=== PATIENT | male | born 1955 | race Caucasian/White ===

== ENCOUNTER 2021-11-22 16:09 | Inpatient (IN) | payer OTHER ==
[~2021-11-22] VITALS: Ht 172.7 cm; Wt 93.4 kg
[~2021-11-22 16:09] MED LIST: ASPI-1169 PO; CEFEPIME 2 GM in IV D5W 100 ML IV ONE; CLOP75TA15 PO
--- NOTE | 2021-11-22 16:20 | NUR ---
TO ER BED 8, CHANDUA RA39 "Chills/NOT feeling well. Palpitation, Nausea/NO appetite". "I thought i'm hypoglycemic". Blood sugar 209, aaox3, breathing even and non labored, denies pain and sob, connected to monitor, awaiting md orders
[2021-11-22] MEDS ORDERED: ONDANSETRON HCL/PF 4 MG/2 ML VIAL ONE ×2 (16:25→20:58)
--- NOTE | 2021-11-22 16:25 | NUR ---
COVID ANTIGEN AND PCR SWABS DONE AND SENT TO LAB
[2021-11-22] MEDS ORDERED: ASPIRIN 325 MG TABLET PO ONE (16:30)
[2021-11-22] MEDS ORDERED: ONDANSETRON HCL/PF - ER 4 MG/2 ML VIAL IV ONE (16:30)
[2021-11-22] MEDS ORDERED: IV NS 0.9% 1,000 ML IV ONE ×2 (16:30→17:30)
--- NOTE | 2021-11-22 16:38 | NUR ---
URINE COLLECTED AND SENT TO LAB
[2021-11-22 16:39] LABS: BASOPHILS % (AUTO) 0.3 % (0.0-2.0); EOSINOPHILS % (AUTO) 0.1 % (0.0-6.0); HEMATOCRIT 52 % (39-51); HEMOGLOBIN 17.1 g/dL (13.5-17.5); LYMPHOCYTES # (AUTO) 0.7 K/uL (0.8-4.8); LYMPHOCYTES % (AUTO) 6.2 % (20.0-44.0); MEAN CORPUSCULAR HGB CONC 33 g/dl (31.0-36.0); MEAN CORPUSCULAR VOLUME 86 fL (80-96); MONOCYTES # (AUTO) 0.4 K/uL (0.1-1.30); MONOCYTES % (AUTO) 3.4 % (2.0-12.0); NEUTROPHILS # (AUTO) 9.5 K/uL (1.8-8.9); PLATELET COUNT (AUTO) 146 K/uL (150-450); RED BLOOD CELL COUNT(AUTO) 6.08 MIL/uL (4.5-6.0); WHITE BLOOD COUNT (AUTO) 10.6 K/uL (4.3-11.0)
[2021-11-22] MEDS ORDERED: ASPIRIN EC 325 MG TABLET.DR PO ONE (16:39)
[2021-11-22] MEDS ORDERED: ASPIRIN 325 MG TABLET ONE (16:40)
[2021-11-22] MEDS ORDERED: CARV12.52 PO (16:44)
[2021-11-22] MEDS ORDERED: ISOS30TA86 PO (16:44)
[2021-11-22] MEDS ORDERED: LISI-768 PO (16:44)
[2021-11-22] MEDS ORDERED: TEST200V3 IM (16:44)
[2021-11-22 16:52] LABS: CALCIUM, SERUM 9.9 mg/dL (8.5-10.1); CREATININE 1.2 mg/dL (0.6-1.3); POTASSIUM 3.5 mmol/L (3.5-5.1)
[2021-11-22 17:05] LABS: THYROID STIMULATING HORMONE 1.822 uIU/mL (0.358-3.74)
--- NOTE | 2021-11-22 17:16 | NUR ---
LACTIC ACID 8.7 DR. SIMON MADE AWARE.
[2021-11-22 17:28] LABS: BILIRUBIN,URINE NEGATIVE (NEGATIVE); COLOR,URINE YELLOW (YELLOW); LEUKOCYTE ESTERASE ,URINE NEGATIVE (NEGATIVE); NITRITE, URINE NEGATIVE (NEGATIVE); PH,URINE 5.5 (5.0-8.0); PROTEIN,URINE >=300 mg/dl (NEGATIVE); UGLUCOSE NEGATIVE (NEGATIVE); UROBILINOGEN,URINE 0.2 EU/dL (0.2)
[2021-11-22] MEDS ORDERED: IOHEXOL-350 100 ML VIAL IV ONE (17:31)
[2021-11-22] MEDS ORDERED: CT SWABBABLE VALVE TRANS SET 1 EA INFUS.SET MC ONE (17:31)
[2021-11-22] MEDS ORDERED: IV NS 0.9% 250 ML IV ONE (17:31)
--- NOTE | 2021-11-22 17:53 | NUR ---
TAKEN TO CT
[2021-11-22 18:08] LABS: BACTERIA,URINE None seen /HPF (None Seen); MUCUS,URINE Many /LPF (None Seen); RBC,URINE 21-50 /HPF (0-2); SQUAMOUS EPITHELIAL CELL,UR 0-2 /HPF (None Seen); WBC,URINE 0-2 /HPF (0-3)
[2021-11-22 18:16] LABS: ALANINE AMINOTRANSFERASE 82 U/L (12-78); ALKALINE PHOSPHATASE 51 U/L (46-116); ASPARTATE AMINOTRANSFERASE 88 U/L (15-37); BILIRUBIN,DIRECT 0.2 mg/dL (0.0-0.2); BILIRUBIN,TOTAL 0.6 mg/dL (0.2-1.0); LIPASE 246 U/L (73-393); MAGNESIUM 1.9 mg/dL (1.8-2.4); TOTAL PROTEIN, SERUM 8.7 g/dL (6.4-8.2)
--- NOTE | 2021-11-22 19:14 | NUR ---
CALLED KEHINDE FOR READ.
--- NOTE | 2021-11-22 19:39 | NUR ---
PT RECEIVED IN BED. NO DISTRESS. NOTED SHAKING.
[2021-11-22] MEDS ORDERED: VANCOMYCIN 1 GM in IV D5W 250 ML IV ONE (20:00)
[2021-11-22] MEDS ORDERED: CEFEPIME 1 GM in IV D5W 50 ML IV ONE (20:00)
[2021-11-22] MEDS ORDERED: CEFEPIME 1 GM VIAL ONE (20:14)
[2021-11-22] MEDS ORDERED: VANCOMYCIN 1 GM VIAL ONE (20:15)
[2021-11-22] MEDS ORDERED: CARVEDILOL 6.25 MG TABLET PO STA (20:28)
[2021-11-22] MEDS ORDERED: LISINOPRIL (5MG) 5 MG TABLET PO STA (20:28)
[2021-11-22] MEDS ORDERED: ENOXAPARIN SODIUM 100 MG/ML DISP.SYRIN SQ ONE ×2 (20:30→20:58)
--- NOTE | 2021-11-22 20:45 | NUR ---
[facility]ORAT[facility] SPECIALIST CALLED. WILL ACLL BACK FOR MD TO
--- NOTE | 2021-11-22 20:49 | NUR ---
SPOKE WITH [facility], FACULTY [employer] AND GAVE VERBAL AUTHORIZATION TO STAY.
--- NOTE | 2021-11-22 20:54 | NUR ---
EPIC PANEL PAGED
[2021-11-22] MEDS ORDERED: LISINOPRIL (20MG) 20 MG TABLET ONE (20:58)
[2021-11-22] MEDS ORDERED: CARVEDILOL 12.5 MG TABLET ONE (20:58)
[2021-11-22] MEDS ORDERED: ONDANSETRON HCL/PF 4 MG/2 ML VIAL IV ONE (21:00)
[2021-11-22] MEDS: ENOXAPARIN SODIUM 40 MG/0.4 ML DISP.SYRIN SQ SCH (23:30)
[2021-11-22] MEDS ORDERED: ZOLPIDEM TARTRATE 5 MG TABLET PO PRN (23:30)
[2021-11-22] MEDS ORDERED: Z GUARD REMEDY 4 OZ OINT TP PRN (23:30)
[2021-11-22] MEDS ORDERED: MAG HYDROX/AL HYDROX/SIMETH 30 ML UDC PO PRN (23:30)
[2021-11-22] MEDS ORDERED: MAGNESIUM HYDROXIDE 30 ML UDC PO PRN (23:30)
[2021-11-22] MEDS ORDERED: ACETAMINOPHEN 325 MG TABLET PO PRN (23:30)
--- NOTE | 2021-11-23 01:21 | NUR ---
REPORT GIVEN TO ERIN PALACIOS FOR ANDREA
--- NOTE | 2021-11-23 02:07 | NUR ---
MRSA SWAB COLLECTED AND SENT TO LAB. PATIENT'S BELONGINGS LIST DONE.
--- NOTE | 2021-11-23 02:25 | NUR ---
PT TRANSPORTED TO UNIT ON [facility] WITH EMT AND RN AT BEDSIDE W/ ACLS PROTOCOL. NAD NOTED DURING TRANSPORT. PT AMBULATED FROM RNEY TO BED WITH MIN ASSIST.
--- NOTE | 2021-11-23 02:30 | NUR ---
RN NOTE RECEIVED PT FROM ER VIA [facility] TO RM.110 ACCOMPANIED BY STAFF/RN. PT AWAKE, A/OX4. PT ABLE TO AMBULATE FROM GURNEY TO BED, PT FEELING "SHAKY", STANDBY ASSIST PROVIDED. RESPIRATIONS EVEN/UNLABORED, ON O2 @2LPM VIA NC. O2 SAT 97%. CONNECTED TO TELE MONITOR. IV SITE: [facility] #20G INTACT/PATENT/FLUSHES WELL. PT DENIES ANY PAIN AND DENIES NAUSEA AT THIS TIME. PT IN NO ACUTE DISTRESS. SAFETY MEASURES IN PLACE, BED IN LOWEST LOCKED POSITION, S/R UPX2, CALL LIGHT WITHIN REACH. WILL CONT TO MONITOR. Addendum: 11/23/21 at 0346 by JUAN JOSÉ ARNOLD RN LOVENOX ALREADY GIVEN IN THE E.R., PER WOODEN TANK ERECTOR REPORT
[2021-11-23] MEDS: IV 1/2NS 1000 ML 1,000 ML IV PRN (03:55)
[2021-11-23] MEDS: ONDANSETRON HCL/PF 4 MG/2 ML VIAL IVP PRN ×2 (04:51→11:47)
[2021-11-23 06:53] LABS: ALBUMIN 3.3 g/dL (3.4-5.0); BILIRUBIN,DIRECT 0.3 mg/dL (0.0-0.2); BILIRUBIN,TOTAL 1.2 mg/dL (0.2-1.0); CALCIUM, SERUM 8.4 mg/dL (8.5-10.1); CREATININE 0.8 mg/dL (0.6-1.3); MAGNESIUM 1.8 mg/dL (1.8-2.4); PHOSPHORUS 2.6 mg/dL (2.5-4.9); POTASSIUM 3.4 mmol/L (3.5-5.1); TOTAL PROTEIN, SERUM 7.2 g/dL (6.4-8.2)
[2021-11-23 07:19] LABS: BASOPHILS % (AUTO) 0.3 % (0.0-2.0); EOSINOPHILS % (AUTO) 0.8 % (0.0-6.0); HEMATOCRIT 45 % (39-51); HEMOGLOBIN 15.2 g/dL (13.5-17.5); LYMPHOCYTES # (AUTO) 0.6 K/uL (0.8-4.8); LYMPHOCYTES % (AUTO) 12.1 % (20.0-44.0); MEAN CORPUSCULAR HGB CONC 34 g/dl (31.0-36.0); MEAN CORPUSCULAR VOLUME 86 fL (80-96); MONOCYTES # (AUTO) 0.6 K/uL (0.1-1.30); MONOCYTES % (AUTO) 10.9 % (2.0-12.0); NEUTROPHILS # (AUTO) 3.9 K/uL (1.8-8.9); NEUTROPHILS % (AUTO) 75.9 % (43.0-81.0); PLATELET COUNT (AUTO) 99 K/uL (150-450); RED BLOOD CELL COUNT(AUTO) 5.27 MIL/uL (4.5-6.0); THYROID STIMULATING HORMONE 1.155 uIU/mL (0.358-3.74); WHITE BLOOD COUNT (AUTO) 5.1 K/uL (4.3-11.0)
[2021-11-23] MEDS: ASPIRIN EC 81 MG TABLET.DR PO SCH (08:09)
[2021-11-23] MEDS: PANTOPRAZOLE 40 MG TABLET.DR PO SCH (08:09)
[2021-11-23] MEDS: ISOSORBIDE MONONITRATE (30MG) 30 MG TAB.SR.24H PO SCH (08:10)
[2021-11-23] MEDS: CARVEDILOL 12.5 MG TABLET PO SCH ×2 (08:10→16:34)
[2021-11-23] MEDS: LISINOPRIL (5MG) 5 MG TABLET PO SCH (08:11)
[2021-11-23] MEDS: VANCOMYCIN 1 GM in IV D5W 250ml IV SCH ×2 (08:47→20:54)
[2021-11-23] MEDS ORDERED: ASPIRIN 81 MG TAB.CHEW PO SCH (09:00)
[2021-11-23] MEDS ORDERED: POTASSIUM CHLORIDE 20 MEQ TAB.PRT.SR PO SCH (10:00)
--- NOTE | 2021-11-23 10:00 | NUR ---
tele weaving instructor: md visit seen and examined by dr. martin at this time with no new order.
[2021-11-23] MEDS: CEFEPIME 2 GM in IV D5W 100 ML IV SCH ×2 (10:11→22:00)
--- NOTE | 2021-11-23 11:45 | NUR ---
tele boom boss: cardio consult seen and examined by dr. ross at this time.
--- NOTE | 2021-11-23 12:30 | NUR ---
tele gift wrapper: notes having lunch. no distress noted.
--- NOTE | 2021-11-23 15:00 | NUR ---
tele automobile locator: notes resting comfortable in bed. no distress noted.
--- NOTE | 2021-11-23 19:10 | NUR ---
tele occupational psychologist: notes bedside report given to ivett (dominique) for continuity of care.
--- NOTE | 2021-11-23 19:30 | NUR ---
1929 REPORT RECEIVED FROM NURSE BURNS FOR TRANSFER OF CARE WITH QUESTIONS ANSWERED.
--- NOTE | 2021-11-23 20:00 | NUR ---
2000 RECEIVED AWAKE WATCHING TV. NO COMPLAIN OF PAIN PARTICULARLY CHEST PAIN WHEN ASKED. NO COMPLAIN OF SHORTNESS OR BREATH OR DIFFICULTY BREATHING. ASSISTED TO SINK REQUESTED. PATIENT NOTED SHAKY WHEN AMBULATING. SAFETY PRECAUTION OBSERVED. CALL LIGHT PLACED WITHIN REACH AND INSTRUCTED TO CALL FOR ASSISTANCE.
--- NOTE | 2021-11-23 21:15 | NUR ---
2114 DR FOSTER WAS NOTIFIED OF PATIENT'S COMPLAIN OF ABDOMINAL PAIN 60/10 RATE WITH ORDER MADE. ORDER NOTED AND CARRIED OUT.
[2021-11-23] MEDS: ENOXAPARIN SODIUM 40 MG/0.4 ML DISP.SYRIN SQ SCH (21:17)
[2021-11-23] MEDS ORDERED: HYDROCODONE/APAP 5/325MG TABLET PO PRN (21:30)
--- NOTE | 2021-11-23 22:30 | NUR ---
0 NOTED PATIENT'S IV DISLODGED. HE SAID IT GOT PULLED OUT WHEN HE TRIED TO REACH FOR HIS CONTROL. INSERTED NEW IV OF LEFT HAND, ATTEMTPED ONCE WITH GOOD BLOOD RETURN NOTED. IVF CONNECTED TO NEW IV ACCESS.
--- NOTE | 2021-11-24 02:00 | NUR ---
0200 NO ACUTE CHANGES. CONT. TO DENY CHEST PAIN. NO DISTRESS NOTED. NEEDS ANTICIPATED. WILL CONT. MONITOR.
[2021-11-24] MEDS: IV 1/2NS 1000 ML 1,000 ML IV PRN (03:02)
[2021-11-24] MEDS: ONDANSETRON HCL/PF 4 MG/2 ML VIAL IVP PRN (04:41)
--- NOTE | 2021-11-24 04:45 | NUR ---
0445 MEDICATED FOR COMPLAIN OF NAUSEA. NO VOMITING NOTED. PATIENT REMAINS AWAKE IN BED. NO SIGNS OF DISTRESS NOTED. NO C/O PAIN WHEN ASKED. IVF INFUSING TO LEFT HAND, NO SIGNS OF INFILTRATION NOTED. CONT. TO TOLERATE ROOM AIR. ALL NEEDS ATTENDED. CALL LIGHT PLACED WITHIN REACH.
--- NOTE | 2021-11-24 06:30 | NUR ---
0630 NO FURTHER NAUSEA VOMITING NOTED. NO COMPLAIN OF PAIN WHEN ASKED. IVF INFUSING TO LEFT HAND. NO SIGNS OF INFILTRATION NOTED. CALL LIGHT PLACED WITHIN REACH. WILL ENDORSE TO AM NURSER FOR TRANSFER OF CARE.
--- NOTE | 2021-11-24 07:30 | NUR ---
0730 REPORT GIVEN TO ERIN GARCIA FOR TRANSFER OF CARE WITH QUESTIONS ANSWERED.
--- NOTE | 2021-11-24 07:35 | NUR ---
RN OPENING NOTES RECEIVED PATIENT AWAKE, ALERT/ORIENTED X 4. ON ROOM AIR, TOLERATING WELL. BREATHING EVEN AND UNLABORED. NO SOB OR ANY SIGNS OF RESPIRATORY DISTRESS NOTED. IV ACCESS ON LEFT HAND PATENT AND INTACT, INFUSING 1/2 NS AT 75 CC/HR. NO SIGNS OF INFILTRATIONS. ALL APPLICABLE ISOLATIONS PRECAUTIONS IN PLACE. ALL SAFETY MEASURES IN PLACE. BED LOCKED AND IN LOWEST POSITION WITH SIDERAILS UP. CALL LIGHT PLACED WITHIN REACH. WILL CONTINUE TO MONITOR PATIENT ACCORDINGLY.
[2021-11-24] MEDS: PANTOPRAZOLE 40 MG TABLET.DR PO SCH (08:39)
[2021-11-24] MEDS: ISOSORBIDE MONONITRATE (30MG) 30 MG TAB.SR.24H PO SCH (08:40)
[2021-11-24] MEDS: LISINOPRIL (5MG) 5 MG TABLET PO SCH (08:40)
[2021-11-24] MEDS: CARVEDILOL 12.5 MG TABLET PO SCH ×2 (08:40→17:57)
[2021-11-24] MEDS: ASPIRIN EC 81 MG TABLET.DR PO SCH (08:40)
[2021-11-24] MEDS: VANCOMYCIN 1 GM in IV D5W 250ml IV SCH (08:41)
[2021-11-24] MEDS: CEFEPIME 2 GM in IV D5W 100 ML IV SCH ×2 (09:54→22:18)
[2021-11-24] MEDS ORDERED: NITROGLYCERIN 0.4 MG/TAB BOTTLE SL ONE (11:00)
--- NOTE | 2021-11-24 11:45 | NUR ---
RN NOTES PATIENT LEFT UNIT FOR PROCEDURE: CT ANGIOGRAM OF HEART WITH 3D IMAGE. PATIENT IN STABLE CONDITION AT THE TIME.
[2021-11-24] MEDS: METOPROLOL TARTRATE INJ 5 MG/5 ML AMPUL IVP PRN ×2 (12:10→12:15)
--- NOTE | 2021-11-24 13:45 | NUR ---
RN NOTES PATIENT BACK IN UNIT. PATIENT IN STABLE CONDITION. BREATHING EVEN AND UNLABORED. NO SOB OR ANY RESPIRATORY DISTRESS NOTED. ALL NEEDS ATTENDED. KEPT DRY AND CLEAN. ALL SAFETY PRECAUTIONS IN PLACE. BED LOCKED AND IN LOWEST POSITION. CALL LIGHT WITHIN REACH. WILL CONTINUE TO MONITOR.
--- NOTE | 2021-11-24 19:06 | NUR ---
RN CLOSING NOTES PATIENT REMAINS IN STABLE CONDITION THROUGHOUT SHIFT. BREATHING EVEN AND UNLABORED IN ROOM AIR, TOLERATING WELL SAT 96%. IV ACCESS ON LEFT HAND #22 AND RIGHT AC #18, PATENT AND INTACT INFUSING 1/2 NS @ 75 ML/HR, NO SIGNS OF INFILTRATIONS. ALL DUE MEDS GIVEN ORDERED. KEPT PATIENT CLEAN, DRY AND COMFORTABLE. ALL NEEDS ATTENDED. ALL APPLICABLE ISOLATION PRECAUTIONS IN PLACE. ALL SAFETY MEASURES IN PLACE: HOB ELEVATED, BED LOCKED AND IN LOWEST POSITION WITH SIDERAILS UP. CALL LIGHT WITHIN REACH. WILL ENDORSE TO ONCOMING NURSE FOR CONTINUITY OF CARE.
--- NOTE | 2021-11-24 19:10 | NUR ---
1909 REPORT RECEIVED DARIO GARCIA FOR [facility].
[2021-11-24 20:00] VITALS: BP 110/59
--- NOTE | 2021-11-24 20:00 | NUR ---
2000 RECEIVED PATIENT SITTING ON EDGE OF BED. NO COMPLAIN OF PAIN OR ANY DISCOMFORT WHEN ASKED, NO C/O SHORTNESS OF BREATH OF DIFFICULTY BREATHING WHEN ASKED. ON ROOM AIR. IVF INFUSING TO RIGHT AC. NO SIGNS OF INFILTRATION NOTED. IVF STOPPED PER ORDER. ASSISTED PATIENT TO BATHROOM. STILL A LITTLE SHAKY WHEN WALKING. FALL PRECAUTIONS OBSERVED. INDEPENDENT WITH TURNING. CALL LIGHT PLACED WITH REACH AND REMINDED TO CALL FOR ASSISTANCE.
[2021-11-24] MEDS: VANCOMYCIN 1.25 GM in IV D5W 250 ML IV SCH (21:02)
[2021-11-24] MEDS: ENOXAPARIN SODIUM 40 MG/0.4 ML DISP.SYRIN SQ SCH (21:02)
--- NOTE | 2021-11-24 22:45 | NUR ---
1318 ASSISTED TO BATHROOM. STILL SHAKY WHEN WALKING. FALL PRECAUTIONS OBSERVED. CONT. TO TOLERATE ROOM AIR. NO C/O PAIN WHEN ASKED. NO COMPLAIN OF SOB WHEN ASKED. NEEDS ATTENDED. CALL LIGHT WITHIN REACH.
[2021-11-25] VITALS: BP 120/80
--- NOTE | 2021-11-25 00:30 | NUR ---
0030 SLEEPING AT THIS TIME. NO ACUTE CHANGES. WILL CONT TO MONITOR.
--- NOTE | 2021-11-25 03:00 | NUR ---
0300 ASLEEP BUT WAKES UP EASILY. NO ACUTE CHANGES IN CONDITION NOTED. KEPT COMFORTABLE. NEEDS ANTICIPATED. CALL LIGHT WITHIN REACH.
[2021-11-25 04:00] VITALS: BP 140/85
[2021-11-25 06:52] LABS: BASOPHILS % (AUTO) 0.6 % (0.0-2.0); EOSINOPHILS % (AUTO) 2.7 % (0.0-6.0); HEMATOCRIT 47 % (39-51); HEMOGLOBIN 15.5 g/dL (13.5-17.5); LYMPHOCYTES % (AUTO) 22.4 % (20.0-44.0); MEAN CORPUSCULAR HGB CONC 33 g/dl (31.0-36.0); MEAN CORPUSCULAR VOLUME 87 fL (80-96); MONOCYTES # (AUTO) 0.7 K/uL (0.1-1.30); MONOCYTES % (AUTO) 15.5 % (2.0-12.0); NEUTROPHILS # (AUTO) 2.6 K/uL (1.8-8.9); NEUTROPHILS % (AUTO) 58.8 % (43.0-81.0); PLATELET COUNT (AUTO) 88 K/uL (150-450); RED BLOOD CELL COUNT(AUTO) 5.41 MIL/uL (4.5-6.0); WHITE BLOOD COUNT (AUTO) 4.5 K/uL (4.3-11.0)
--- NOTE | 2021-11-25 07:25 | NUR ---
0725 REPORT GIVEN TO RN MARIBEL FOR TRANSFER OF CARE WITH QUESTIONS ANSWERED.
--- NOTE | 2021-11-25 07:35 | NUR ---
RN OPENING NOTES RECEIVED PATIENT AWAKE, ALERT/ORIENTED X 4. ON ROOM AIR, TOLERATING WELL. BREATHING EVEN AND UNLABORED. NO SOB OR ANY SIGNS OF RESPIRATORY DISTRESS NOTED. IV ACCESS ON RIGHT AC #18G INTACT, NOTED WITH LEAKING UPON FLUSHING. NO SIGNS OF INFILTRATIONS. ALL APPLICABLE ISOLATIONS PRECAUTIONS IN PLACE. ALL SAFETY MEASURES IN PLACE. BED LOCKED AND IN LOWEST POSITION WITH SIDERAILS UP. CALL LIGHT PLACED WITHIN REACH. WILL CONTINUE TO MONITOR PATIENT ACCORDINGLY
[2021-11-25 08:00] VITALS: BP 125/89
[2021-11-25 08:09] LABS: CALCIUM, SERUM 9.1 mg/dL (8.5-10.1); MAGNESIUM 2.3 mg/dL (1.8-2.4); PHOSPHORUS 4.8 mg/dL (2.5-4.9); POTASSIUM 4.2 mmol/L (3.5-5.1)
--- NOTE | 2021-11-25 08:15 | NUR ---
RN NOTES REINSERTED IV ACCESS ON LEFT FOREARM #18G, PATENT AND INTACT WITH GOOD BLOOD RETURN AND FLUSHES WELL.
[2021-11-25] MEDS: PANTOPRAZOLE 40 MG TABLET.DR PO SCH (08:25)
[2021-11-25] MEDS: CARVEDILOL 12.5 MG TABLET PO SCH ×2 (08:25→17:22)
[2021-11-25] MEDS: ISOSORBIDE MONONITRATE (30MG) 30 MG TAB.SR.24H PO SCH (08:26)
[2021-11-25] MEDS: LISINOPRIL (5MG) 5 MG TABLET PO SCH (08:26)
[2021-11-25] MEDS: VANCOMYCIN 1.25 GM in IV D5W 250 ML IV SCH (08:26)
[2021-11-25] MEDS: ASPIRIN EC 81 MG TABLET.DR PO SCH (08:26)
[2021-11-25] MEDS: CEFEPIME 2 GM in IV D5W 100 ML IV SCH (11:10)
[2021-11-25 12:00] VITALS: BP 112/61
[2021-11-25 14:29] LABS: EOSINOPHILS % (MANUAL) 3 % (0-4); LYMPHOCYTES % (MANUAL) 26 % (16-48); MONOCYTES % (MANUAL) 17 % (0-11.0); NEUTROPHILS % (MANUAL) 53 (42-76)
[2021-11-25 16:00] VITALS: BP 124/80
[2021-11-25 17:22] VITALS: BP 124/80
--- NOTE | 2021-11-25 19:15 | NUR ---
RN OPENING NOTES RECEIVED PATIENT AWAKE, ALERT/ORIENTED X 4. ON ROOM AIR, TOLERATING WELL. BREATHING EVEN AND UNLABORED. NO SOB OR ANY SIGNS OF RESPIRATORY DISTRESS NOTED. ALL SAFETY MEASURES IN PLACE. BED LOCKED AND IN LOWEST POSITION WITH SIDERAILS UP. CALL LIGHT PLACED WITHIN REACH. WILL CONTINUE TO MONITOR PATIENT ACCORDINGLY
--- NOTE | 2021-11-25 19:45 | NUR ---
RN CLOSING NOTES PATIENT REMAINS ON STABLE CONDITION THROUGHOUT SHIFT. ON ROOM AIR, TOLERATING WELL. BREATHING EVEN AND UNLABORED. NO SOB OR ANY SIGNS OF RESPIRATORY DISTRESS NOTED. IV ACCESS ON RIGHT FOREARM #18G INTACT AND PATENT. NO SIGNS OF INFILTRATIONS. ALL DUE MEDS GIVEN ORDERED. ALL NEEDS MET. KEPT PATIENT CLEAN AND COMFORTABLE. NURSE FROM [employer] AT BEDSIDE FOR [employer] INSTRUCTIONS. ALL APPLICABLE ISOLATIONS PRECAUTIONS IN PLACE. ALL SAFETY MEASURES IN PLACE. BED LOCKED AND IN LOWEST POSITION WITH SIDERAILS UP. CALL LIGHT PLACED WITHIN REACH. ENDORSE TO ONCOMING NURSE FOR ANDREA.
--- NOTE | 2021-11-25 19:50 | NUR ---
RN NOTES RESIDENT REFUSED TO WEAR THE LIFE VEST, EXPLAINED RISK AND BENEFITS OFFER 3X STILL REFUSED, DR. MURILLO MADE AWARE AND ACKNOWLEDGED IT IS OK IF THE PATIENT REFUSED.
--- NOTE | 2021-11-25 20:48 | NUR ---
RN NOTES TAXI ARRIVED TO PICKED UP THE PATIENT, PATIENT ACCOMPANIED TO LOBBY, TAXI NO. [id number] (GEREMIAS- BI SPECIALIST) LEFT HOSPITAL IN STABLE CONDITION, NO SOB, NOT IN DISTRESS.
== END 2021-11-25 20:48 | disposition home or self-care (01) | DRG 194 ==
LOC: ER 16:10 → TRANSITION 23:06 → TELE1 23:31
PROVIDERS: ADMIT Student in an Organized Health Care Education/Training Program; ATTEND Nurse Practitioner Acute Care
DX: I11.0 Hypertensive heart disease with heart failure (principal); I21.A1 Myocardial infarction type 2; D69.6 Thrombocytopenia, unspecified; E87.2 Acidosis; M48.04 Spinal stenosis, thoracic region; I50.31 Acute diastolic (congestive) heart failure; I42.0 Dilated cardiomyopathy; K86.1 Other chronic pancreatitis; I25.10 Atherosclerotic heart disease of native coronary artery without angina pectoris; Z20.822 Contact with and (suspected) exposure to COVID-19; I25.2 Old myocardial infarction; I16.0 Hypertensive urgency; Z79.82 Long term (current) use of aspirin; Z79.899 Other long term (current) drug therapy; R74.01 Elevation of levels of liver transaminase levels; F41.9 Anxiety disorder, unspecified; F32.A Depression, unspecified; K76.0 Fatty (change of) liver, not elsewhere classified; M25.78 Osteophyte, vertebrae; N62 Hypertrophy of breast
CPT/HCPCS: 36415; 71045-TC; 75574; 80048-TC; 80076-TC; 80202-TC; 81001; 83605-TC; 83690-TC; 83735-TC; 83880; 84100-TC; 84443-TC; 84484-TC; 85025-TC; 85378-TC; 87040-TC; 87081-TC; 93307-TC; C9803; G0378; J0692; J1650; J2405; J3370; J3490; J7030; J7050; J7060; Q9967; U0003